=== PATIENT | female | born 2000 | race Caucasian/White ===

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

== ENCOUNTER 2021-05-13 15:20 | Emergency (ER) | payer OTHER ==
[~2021-05-13] VITALS: Ht 160 cm; Wt 70.3 kg
[~2021-05-13 15:20] MED LIST: BIRTH CONTROL PILLS PO; PHENERGAN 25 MG25 M1 PO; TESSALON PERLE100 MG PO
[2021-05-13 18:25] VITALS: BP 120/76
== END 2021-05-13 18:25 | disposition home or self-care (01) ==
LOC: ER 15:20
DX: S91.115A Laceration without foreign body of left lesser toe(s) without damage to nail, initial encounter (principal); W25.XXXA Contact with sharp glass, initial encounter; Y93.89 Activity, other specified; Y92.89 Other specified places as the place of occurrence of the external cause; Y99.9 Unspecified external cause status

== ENCOUNTER 2021-05-22 17:39 | Emergency (ER) | payer OTHER ==
[~2021-05-22] VITALS: Ht 160 cm; Wt 74.8 kg
[2021-05-22 18:38] VITALS: BP 134/71
== END 2021-05-22 18:38 | disposition home or self-care (01) ==
LOC: ER 17:39
DX: Z48.02 Encounter for removal of sutures (principal)

== ENCOUNTER 2021-05-22 21:41 | Observation (INO) | payer OTHER ==
[~2021-05-22] VITALS: Ht 160 cm; Wt 80.3 kg
[2021-05-22 21:44] VITALS: BP 156/74
[2021-05-22 22:37] LABS: URINE BILIRUBIN NEGATIVE (Negative); URINE BLOOD 3+ (Negative); URINE CLARITY SL CLOUDY; URINE COLOR YELLOW; URINE GLUCOSE-RANDOM* NEGATIVE (Negative); URINE KETONES NEGATIVE (Negative); URINE NITRITE-REFLEX NEGATIVE (Negative); URINE PROTEIN (DIPSTICK) NEGATIVE (Negative); URINE SPECIFIC GRAVITY <= 1.005 (1.005-1.035); URINE UROBILINOGEN 0.2 E.U./dl (0.2-1.0)
[2021-05-22 22:47] LABS: URINE LEUKOCYTES-REFLEX 3+ (Negative)
[2021-05-22 22:49] LABS: ABSOLUTE NEUTROPHILS 3.4 thou/uL (1.4-8.2); BASOPHILS 0.4 % (0.0-2.0); EOSINOPHILS 0.2 % (0.0-3.0); HEMATOCRIT 36.7 % (37.0-47.0); HEMOGLOBIN 12.2 gm/dL (12.0-15.0); MCH 29.7 pg (26.0-34.0); MCHC 33.2 g/dL (28.0-37.0); MCV 89.6 fL (80.0-100.0); PLATELET COUNT 171 thou/uL (150-400); POLYS 36.4 % (36.0-66.0); RDW 12.9 % (10.5-14.5); WBC 9.2 thou/uL (4.0-11.0)
[2021-05-22 22:50] LABS: BACTERIA-REFLEX 1-9 Few /HPF (None Seen); MUCUS 4-6 Moderate strn/LPF (None Seen); SQUAMOUS 4-10 Moderate /LPF (0-3)
[2021-05-22 22:51] LABS: CASTS None Seen /LPF (None Seen); CRYSTALS None Seen /LPF (None Seen)
[2021-05-22 22:52] LABS: CALCIUM 8.7 mg/dL (8.5-10.1); CREATININE 0.7 mg/dL (0.6-1.0); POTASSIUM 3.5 mmol/L (3.5-5.1)
[2021-05-22 22:58] LABS: ALBUMIN 3.6 g/dL (3.4-5.0); MAGNESIUM 2.1 mg/dL (1.8-2.4); TOTAL BILIRUBIN 0.9 mg/dL (0.2-1.0); TOTAL PROTEIN 7.9 g/dL (6.4-8.2)
[2021-05-23] VITALS (7 sets, daily range): BP systolic 105–131; BP diastolic 44–67
[2021-05-23 05:17] LABS: BE(vivo) -0.4 mmol/L (-2 to +3); HCO3 22.4 mmol/L (22.0-26.0); PCO2 30.8 mmHg (35.0-45.0); PO2 83.2 mmHg (80.0-100.0); pH 7.479 (7.360-7.450)
--- NOTE | 2021-05-23 07:26 | EKG ---
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: TIANA : 2000 Requested By: Maribel Deal Order Number: [id number] MD: Jeff Castrejon Measurements Intervals [place] Rate: 134 P: 55 MS: 137 QRS: 81 QRSD: 82 T: 29 QT: 275 QTc: 411 Interpretive Statements Sinus tachycardia Baseline wander in lead(s) V4 Compared to ECG 10/08/2015 16:44:39 Sinus rhythm no longer present Electronically Signed On 05-23-2021 7:26:19 CDT by Jeff Castrejon [email or web address] <ELECTRONICALLY SIGNED> By: Jeff aCstrejon MD, [facility] 05/23/21 07 2149 2149 Jeff Castrejon MD, FACC /EPI
[2021-05-23 07:47] LABS: AMP/METHAMP Negative (Negative); BARBITURATES Negative (Negative); BENZODIAZEPINES Negative (Negative); COCAINE Negative (Negative); METHADONE Negative (Negative); OPIATES Negative (Negative); PCP Negative (Negative)
--- NOTE | 2021-05-23 10:42 | 2DMMODE ---
[facility] [place] [address] 2 D/M-MODE ECHOCARDIOGRAM Name: HAILEY NAGEL Room #: 201-P ADM Lg M.R.#: [id number] Admission: 05/23/21 Attend Phys: Dominic Jones MD Discharge: Date of : 01 Report #: [id number] THIS REPORT FOR: cc: NO FAMILY PHYSICIAN or PCP NO FAMILY PHYSICIAN or PCP Tadeo San MD [facility] ~ APPROVED REPORT Study performed: 05/23/2021 09:51:20 EXAM: Comprehensive 2D, Doppler, and color-flow Echocardiogram Patient Location: Bedside Room #: 201 Status: routine BSA: 1.84 HR: 122 bpm BP: 117/57 mmHg Rhythm: Sinus Tach Other Information Study Quality: Adequate/patient complained of exam being painful. Not all measurements taken. Indications Febrile, tachycardia, viral infection. 2D Dimensions IVSd: 10.19 (7-11mm) LVOT Diam: 19.17 (18-24mm) LVDd: 40.00 mm PWd: 9.89 (7-11mm) LVDs: 26.44 (25-40mm) Left Atrium: 34.40 (27-40mm) Aortic Root: 26.49 mm Aortic Valve AoV Peak Ken.: 2.21 m/s AO Peak Gr.: 19.59 mmHg LVOT Max P.82 mmHg LVOT Max V: 1.57 m/s JOSTIN Vmax: 2.04 cm2 Pulmonary Valve PV Peak Ken.: 1.67 m/s PV Peak Gr.: 11.12 mmHg Left Ventricle [facility] [address] [place] [address] 2 D/M-MODE ECHOCARDIOGRAM Name: HAILEY NAGEL Room #: 201-P ADM IN M.R.#: [id number] Admission: 05/23/21 Attend Phys: Dominic Jones MD Discharge: Date of : 01 Report #: [id number] The left ventricle is normal size. There is normal LV segmental wall motion. There is normal left ventricular wall thickness. Left ventricular systolic function is normal. LVEF is 65%. This study is not technically sufficient to allow evaluation of the LV diastolic function due to tachycardia. Right Ventricle The right ventricle is normal size. The right ventricular systolic function is normal. Atria The left atrium size is normal. The right atrium size is normal. Aortic Valve The aortic valve is normal in structure. No aortic regurgitation is present. There is no aortic valvular stenosis. Mitral Valve The mitral valve is normal in structure. There is no mitral valve regurgitation noted. No evidence of mitral valve stenosis. Tricuspid Valve The tricuspid valve is normal in structure. There is no tricuspid valve regurgitation noted. Unable to assess PA pressure. Pulmonic Valve The pulmonary valve is normal in structure. There is no pulmonic valvular regurgitation. Great Vessels The aortic root is normal in size. The ascending aorta is normal in size. IVC is not well visualized. Pericardium There is no pericardial effusion. <Conclusion> Left ventricular systolic function is normal. There is normal LV segmental wall motion. LVEF is 65%. The aortic valve is normal in structure. No aortic regurgitation or stenosis The mitral valve is normal in structure. No mitral valve regurgitation. [facility] [address] [place] [address] 2 D/M-MODE ECHOCARDIOGRAM Name: HAILEY NAGEL Room #: 201-P [facility] IN [facility].#: [id number] Admission: 05/23/21 Attend Phys: Dominic Jones MD Discharge: Date of : 01 Report #: [id number] Unable to assess pulmonary artery pressure. There is no pericardial effusion. <ELECTRONICALLY SIGNED> By: Tadeo San MD, [facility] 05/23/21 1042 [id number] 41 Tadeo San MD, [facility] /INF
[2021-05-23 17:27] LABS: ALBUMIN 3.1 g/dL (3.4-5.0); DIRECT BILIRUBIN 0.1 mg/dL (<0.1-0.2); TOTAL BILIRUBIN 0.5 mg/dL (0.2-1.0)
[2021-05-24 00:14] VITALS: BP 117/64
[2021-05-24 03:54] VITALS: BP 117/64
[2021-05-24 04:04] VITALS: BP 115/73; BP 155/73
[2021-05-24 05:36] LABS: HEMATOCRIT 30.9 % (37.0-47.0); HEMOGLOBIN 10.5 gm/dL (12.0-15.0); MCH 30.7 pg (26.0-34.0); MCHC 33.9 g/dL (28.0-37.0); MCV 90.6 fL (80.0-100.0); PLATELET COUNT 143 thou/uL (150-400); RBC 3.41 mil/uL (4.20-5.00); WBC 5.2 thou/uL (4.0-11.0)
[2021-05-24 05:41] LABS: CALCIUM 8.3 mg/dL (8.5-10.1); CREATININE 0.6 mg/dL (0.6-1.0); POTASSIUM 3.6 mmol/L (3.5-5.1)
--- NOTE | 2021-05-24 08:21 | HC ---
[facility] [place] [address] CONSULTATION Name: HAILEY NAGEL Room #: [facility] M.R.#: [id number] Admission: 05/23/21 Attend Phys: Dominic Jones MD Discharge: Date of : 01 Report #: [id number] THIS REPORT FOR: cc: NO FAMILY PHYSICIAN or PCP NO FAMILY PHYSICIAN or PCP Levar Uriarte MD ~ DOC #: [id number] Levar Uriarte MD DATE OF SERVICE: 05/23/2021 INFECTIOUS DISEASE CONSULTATION ATTENDING PHYSICIAN: Dr. Jones. REASON FOR EVALUATION: Febrile illness, suspected urinary tract infection. HISTORY OF PRESENT ILLNESS: Chart reviewed and the patient examined. This is a 20-year-old woman without significant medical history, who sustained injury roughly 2 weeks ago with having a mirror break, had a puncture type injury involving the lateral aspect of her right foot, primarily the webspace between the fourth and fifth toes, did require suturing, returned yesterday for suture removal. She was found to be tachycardic. She was otherwise asymptomatic. However, over the course of the next 30-60 minutes had developed a more symptomatic tachycardia, was found to have rate in the 130s, has returned, was subsequently evaluated. Urinalysis did show moderate pyuria. Chest x-ray was otherwise unremarkable. Glucose was elevated at 160. Lactic acid normal at 0.8. TSH of 0.593. Blood cultures collected at time of admission are sterile thus far. She was initiated on therapy with ceftriaxone 1 gram daily. She is generally lucid. She has mild distress. She is not overtly toxic. She does admit to a recent cough, had chills, although no fevers. She was aware of it at home, although temperature earlier today was 38.1. Denies any neck type complaints. No GI complaints, although had some diminished appetite, poor p.o. intake. ALLERGIES: None known. MEDICATIONS: Currently include ceftriaxone, acetaminophen, ondansetron. PAST MEDICAL HISTORY: Otherwise, unremarkable. SOCIAL HISTORY: Nonsmoker, no ethanol or illicit drug use. FAMILY HISTORY: Noncontributory. REVIEW OF SYSTEMS: Otherwise unremarkable 10-point review of systems. [facility] [address] [place] [address] CONSULTATION Name: HAILEY NAGEL Room #: 201-P [facility].#: [id number] Admission: 05/23/21 Attend Phys: Dominic Jones MD Discharge: Date of : 01 Report #: [id number] PHYSICAL EXAMINATION: GENERAL: She is alert, cooperative, mild to moderate distress. She is lucid. VITAL SIGNS: Temperature 98.4, T-max 100.5, blood pressure 127/55, pulse 107 down from the 130s. HEENT: Unremarkable. Normocephalic. Extraocular muscles intact. NECK: Supple. LUNGS: Clear to auscultation bilaterally. HEART: Borderline tachycardic, regular. No appreciable murmur. ABDOMEN: Mildly distended, nontender. GENITOURINARY AND RECTAL: Deferred. LABORATORY DATA: Sed rate of 70. Procalcitonin 0.12. CRP of 35.5. Drug screen was negative. Blood cultures sterile thus far. CT of the chest showed no evidence of PE, no pulmonary process. Coronavirus testing was negative. Electrolytes: Sodium 138, potassium 3 5, chloride 103, bicarbonate 26, BUN and creatinine 6 and 0.7, anion gap of 9, glucose of 160, AST of 60, ALT of 105, albumin 3.6, total protein 7.9. Urinalysis, 16-25 white cells. ASSESSMENT: Febrile illness with evidence of pyuria and likely has a urinary tract infection, also recent injury with a laceration involving her right 4th, 5th webspace on her foot. PLAN: We will continue empiric therapy with ceftriaxone. We will repeat liver functions, go ahead and do an ultrasound of the biliary tract as well. Await culture results. Add incentive spirometry. Discussed with the patient. Levar Uriarte MD JWB/JOSÉ MIGUEL <ELECTRONICALLY SIGNED> By: Levar Uriarte MD 05/24/21 0821 [id number] Levar Uriarte MD /nt
[2021-05-24 11:31] VITALS: BP 102/46
[2021-05-24] MEDS ORDERED: BACTRIM DS TAB1 EAC1 PO (14:07)
[2021-05-24 14:29] VITALS: BP 131/61
[2021-05-24 14:30] LABS: ABSOLUTE NEUTROPHILS 1.8 thou/uL (1.4-8.2)
[2021-05-24 14:31] LABS: ATYPICAL LYMPHS 10 %
[2021-05-24 14:37] LABS: ANISOCYTOSIS SLIGHT
== END 2021-05-24 15:51 | disposition home or self-care (01) ==
LOC: ER 21:41 → EROBS 05-23 05:39 → 2N 05-23 06:15
PROVIDERS: Emergency Medicine; Nurse Practitioner; Specialist; ADMIT Hospitalist; ATTEND Hospitalist
DX: R00.0 Tachycardia, unspecified (principal); Z20.822 Contact with and (suspected) exposure to COVID-19; N39.0 Urinary tract infection, site not specified; R79.89 Other specified abnormal findings of blood chemistry; R05 Cough; F41.9 Anxiety disorder, unspecified; B34.9 Viral infection, unspecified; J06.9 Acute upper respiratory infection, unspecified; R11.0 Nausea; Z98.890 Other specified postprocedural states